=== PATIENT | male | born 1950 | race African-American/Black ===

== ENCOUNTER 2018-12-22 18:55 | Inpatient (IN) | payer MEDICARE, MEDICAID ==
[~2018-12-22] VITALS: Ht 167.6 cm; Wt 49.0 kg
[2018-12-22] MEDS ORDERED: IPRATROPIUM BROMIDE (0.02%) 0.5MG/2.5ML NEB HHN STA (19:03)
[2018-12-22] MEDS ORDERED: METHYLPREDNISOLONE SOD SUCC 125 MG/2 ML VIAL IV STA (19:03)
[2018-12-22] MEDS ORDERED: MAGNESIUM 2 G PREMIX 50 ML IV STA (19:15)
[2018-12-22] MEDS: ALBUTEROL (0.083%) 2.5MG/3ML NEB HHN SCH ×2 (19:30→20:00)
[2018-12-22 19:35] LABS: HEMATOCRIT. 40.3 % (42.0-52.0); HEMOGLOBIN. 12.8 g/dL (14.0-18.0); MEAN CORPUSCULAR HEMOGLOBIN 26.3 pg (28.0-32.0); MEAN CORPUSCULAR VOLUME 82.6 fL (80.0-94.0); MEAN PLATELET VOLUME 8.8 fl (7.4-10.4); PLATELET 240 x1000/uL (130-400); RED BLOOD CELL COUNT 4.88 mill/uL (4.7-6.1); RED CELL DISTRIBUTION WIDTH 16.1 % (11.6-14.6)
[2018-12-22 19:40] LABS: CHLORIDE 102 mEq/L (98-107)
[2018-12-22 20:08] LABS: ATYPICAL LYMPHOCYTES 3; PLATELET ESTIMATE NORMAL
[2018-12-22] MEDS ORDERED: IPRATROPIUM/ALBUTEROL 0.5-3(2.5)MG/3ML NEB INH PRN (21:45)
[2018-12-22] MEDS ORDERED: ZOLPIDEM TARTRATE 5MG TABLET PO PRN (21:45)
[2018-12-22] MEDS ORDERED: NITROGLYCERIN 0.4MG TABLET SL SL PRN (21:45)
[2018-12-22] MEDS ORDERED: NA PHOS,M-B/NA PHOS,DI-BA ENEMA 118ML PR PRN (21:45)
[2018-12-22] MEDS ORDERED: CLONIDINE 0.1MG TABLET PO PRN (21:45)
[2018-12-22] MEDS ORDERED: ACETAMINOPHEN 325MG TABLET PO PRN (21:45)
[2018-12-22] MEDS ORDERED: TRAMADOL 50MG TABLET PO PRN (21:45)
[2018-12-22] MEDS ORDERED: ONDANSETRON HCL 4MG/2ML INJ IV PRN (21:45)
[2018-12-22] MEDS ORDERED: MAGNESIUM/ALUMINUM HYDROXIDE/SIMETHICONE 30ML UDC PO PRN (21:45)
[2018-12-22] MEDS ORDERED: DOCUSATE SODIUM 100MG CAPSULE PO PRN (21:45)
[2018-12-22] MEDS ORDERED: LORAZEPAM 0.5MG TABLET PO PRN (21:45)
[2018-12-22] MEDS ORDERED: LEVOFLOXACIN 500MG PREMIX 100 ML IV SCH (22:00)
[2018-12-22 22:45] LABS: FOLIC ACID (FOLATE) SERUM 11.8 ng/mL (>5.38)
[2018-12-22 22:52] LABS: *AMPHETAMINES SCREEN URINE NEGATIVE (NEGATIVE); *BARBITURATES SCREEN URINE NEGATIVE (NEGATIVE); *BENZODIAZEPINES SCREEN URINE NEGATIVE (NEGATIVE); *COCAINE SCREEN URINE PRESUMTIVE POSITIVE (NEGATIVE); METHADONE URINE SCREEN NEGATIVE (NEGATIVE)
[2018-12-22 22:53] LABS: CANNABINOID URINE SCREEN NEGATIVE (NEGATIVE); OPIATES URINE SCREEN PRESUMTIVE POSITIVE (NEGATIVE); PHENCYCLIDINE URINE SCREEN NEGATIVE (NEGATIVE)
[2018-12-22 23:40] LABS: ETHANOL BLOOD < 10 mg/dL
[2018-12-22 23:41] LABS: TOTAL IRON BINDING CAPACITY 252 ug/dL (250-450)
[2018-12-22] MEDS: GUAIFENESIN/DM 600MG/30MG ER TAB 12HR PO SCH (23:41)
[2018-12-22 23:42] LABS: LDL CHOLESTEROL 114 mg/dL (5-100)
[2018-12-22 23:43] LABS: CREATINE KINASE 54 IU/L (39-308); HDL CHOLESTEROL 72 mg/dL (40-59)
[2018-12-22 23:45] LABS: CREATINE KINASE MB FRACTION 2.8 ng/mL (0.5-3.6)
[2018-12-23] VITALS (10 sets, daily range): BP systolic 104–136; BP diastolic 50–83
[2018-12-23] MEDS: DILTIAZEM HCL 60MG TABLET PO SCH ×5 (02:36→23:05)
[2018-12-23] MEDS: METHYLPREDNISOLONE SOD SUCC 125 MG/2 ML VIAL IV SCH ×3 (06:00→21:06)
[2018-12-23] MEDS ORDERED: PRED1TAB MT (06:17)
[2018-12-23] MEDS ORDERED: ALBU4TAB6 MT (06:17)
[2018-12-23] MEDS: IPRATROPIUM/ALBUTEROL 0.5-3(2.5)MG/3ML NEB HHN SCH ×4 (09:07→21:23)
[2018-12-23 09:38] LABS: CREATINE KINASE 51 IU/L (39-308)
[2018-12-23 09:40] LABS: CREATINE KINASE MB FRACTION 2.5 ng/mL (0.5-3.6)
[2018-12-23] MEDS: ASCORBIC ACID 500 MG TABLET PO SCH ×2 (09:41→21:06)
[2018-12-23] MEDS: GUAIFENESIN/DM 600MG/30MG ER TAB 12HR PO SCH ×2 (09:41→21:06)
[2018-12-23] MEDS: ENOXAPARIN 40MG/0.4ML SYR SUBCUT SCH ×2 (09:41→09:47)
[2018-12-23] MEDS: FAMOTIDINE 20MG TABLET PO SCH ×2 (09:41→21:00)
[2018-12-23] MEDS: ASPIRIN 325MG EC TABLET PO SCH (09:42)
[2018-12-23] MEDS: GUAIFENESIN 200MG/10ML SUGAR FREE UDC PO PRN (18:11)
[2018-12-23] MEDS ORDERED: LEVOFLOXACIN 500MG PREMIX 100 ML IV SCH (21:00)
[2018-12-24] VITALS (12 sets, daily range): BP systolic 106–164; BP diastolic 51–98
[2018-12-24] MEDS: IPRATROPIUM/ALBUTEROL 0.5-3(2.5)MG/3ML NEB HHN SCH ×6 (00:28→20:26)
[2018-12-24] MEDS: DILTIAZEM HCL 60MG TABLET PO SCH ×3 (05:29→17:52)
[2018-12-24] MEDS: METHYLPREDNISOLONE SOD SUCC 125 MG/2 ML VIAL IV SCH ×3 (05:29→21:31)
[2018-12-24] MEDS: GUAIFENESIN/DM 600MG/30MG ER TAB 12HR PO SCH ×2 (09:48→21:00)
[2018-12-24] MEDS: ASCORBIC ACID 500 MG TABLET PO SCH ×2 (09:48→21:05)
[2018-12-24] MEDS: ASPIRIN 325MG EC TABLET PO SCH (09:48)
[2018-12-24] MEDS: FAMOTIDINE 20MG TABLET PO SCH ×2 (09:48→21:00)
[2018-12-24] MEDS ORDERED: IPRATROPIUM/ALBUTEROL 0.5-3(2.5)MG/3ML NEB HHN PRN (10:30)
[2018-12-24] MEDS ORDERED: LEVOFLOXACIN 500MG TABLET PO SCH (21:00)
[2018-12-24] MEDS: GUAIFENESIN 200MG/10ML SUGAR FREE UDC PO PRN (21:04)
[2018-12-25] VITALS (13 sets, daily range): BP systolic 112–140; BP diastolic 55–96
[2018-12-25] MEDS: DILTIAZEM HCL 60MG TABLET PO SCH ×5 (00:29→23:54)
[2018-12-25] MEDS: IPRATROPIUM/ALBUTEROL 0.5-3(2.5)MG/3ML NEB HHN SCH ×6 (04:00→20:36)
[2018-12-25] MEDS: METHYLPREDNISOLONE SOD SUCC 125 MG/2 ML VIAL IV SCH ×4 (06:31→21:25)
[2018-12-25] MEDS: GUAIFENESIN/DM 600MG/30MG ER TAB 12HR PO SCH ×2 (09:00→09:16)
[2018-12-25] MEDS: FAMOTIDINE 20MG TABLET PO SCH ×2 (09:00→21:00)
[2018-12-25] MEDS: ENOXAPARIN 40MG/0.4ML SYR SUBCUT SCH (09:00)
[2018-12-25] MEDS: ASCORBIC ACID 500 MG TABLET PO SCH ×2 (09:16→21:25)
[2018-12-25] MEDS: ASPIRIN 325MG EC TABLET PO SCH (09:16)
[2018-12-25] MEDS: GUAIFENESIN 200MG/10ML SUGAR FREE UDC PO PRN ×2 (09:16→17:19)
[2018-12-25] MEDS: AZITHROMYCIN 500 MG TABLET PO SCH ×2 (10:30→19:51)
[2018-12-25] MEDS: LORATADINE 10MG TABLET PO SCH (10:30)
[2018-12-25] MEDS: GUAIFENESIN 600MG ER TABLET PO SCH ×2 (11:00→21:00)
[2018-12-25] MEDS: MONTELUKAST SODIUM 10MG TABLET PO SCH (17:19)
[2018-12-25] MEDS ORDERED: AZITHROMYCIN 500 MG TABLET PO NR (20:00)
[2018-12-26] VITALS (12 sets, daily range): BP systolic 114–149; BP diastolic 65–96
[2018-12-26] MEDS: IPRATROPIUM/ALBUTEROL 0.5-3(2.5)MG/3ML NEB HHN SCH ×5 (04:43→20:05)
[2018-12-26] MEDS: METHYLPREDNISOLONE SOD SUCC 125 MG/2 ML VIAL IV SCH ×3 (06:21→21:49)
[2018-12-26] MEDS: DILTIAZEM HCL 60MG TABLET PO SCH ×4 (06:22→23:48)
[2018-12-26] MEDS: AZITHROMYCIN 250 MG TABLET PO SCH (08:39)
[2018-12-26] MEDS: FAMOTIDINE 20MG TABLET PO SCH ×2 (08:39→20:41)
[2018-12-26] MEDS: LORATADINE 10MG TABLET PO SCH (08:39)
[2018-12-26] MEDS: GUAIFENESIN 600MG ER TABLET PO SCH ×2 (08:39→20:41)
[2018-12-26] MEDS: ASPIRIN 325MG EC TABLET PO SCH (08:39)
[2018-12-26] MEDS: ASCORBIC ACID 500 MG TABLET PO SCH ×2 (08:39→20:48)
[2018-12-26] MEDS: ENOXAPARIN 40MG/0.4ML SYR SUBCUT SCH ×2 (08:40→08:41)
[2018-12-26] MEDS ORDERED: TERBUTALINE SULFATE 1MG/ML VIAL SUBCUT SCH (12:45)
[2018-12-26] MEDS: THEOPHYLLINE ANHYDROUS 80 MG/15 ML 120ML PO SCH ×2 (15:16→21:50)
[2018-12-26] MEDS: MONTELUKAST SODIUM 10MG TABLET PO SCH (16:14)
[2018-12-27] VITALS (13 sets, daily range): BP systolic 118–140; BP diastolic 58–87
[2018-12-27] MEDS: METHYLPREDNISOLONE SOD SUCC 125 MG/2 ML VIAL IV SCH ×3 (05:24→21:27)
[2018-12-27] MEDS: DILTIAZEM HCL 60MG TABLET PO SCH ×3 (05:25→19:00)
[2018-12-27] MEDS: THEOPHYLLINE ANHYDROUS 80 MG/15 ML 120ML PO SCH ×4 (05:25→21:26)
[2018-12-27] MEDS: IPRATROPIUM/ALBUTEROL 0.5-3(2.5)MG/3ML NEB HHN SCH ×6 (08:00→20:55)
[2018-12-27] MEDS: ENOXAPARIN 40MG/0.4ML SYR SUBCUT SCH (08:45)
[2018-12-27] MEDS: GUAIFENESIN 600MG ER TABLET PO SCH ×2 (08:45→20:17)
[2018-12-27] MEDS: FAMOTIDINE 20MG TABLET PO SCH ×2 (08:52→20:14)
[2018-12-27] MEDS: LORATADINE 10MG TABLET PO SCH (08:52)
[2018-12-27] MEDS: AZITHROMYCIN 250 MG TABLET PO SCH (08:52)
[2018-12-27] MEDS: ASCORBIC ACID 500 MG TABLET PO SCH ×2 (08:52→20:14)
[2018-12-27] MEDS: ASPIRIN 325MG EC TABLET PO SCH (08:52)
[2018-12-27] MEDS: GUAIFENESIN 200MG/10ML SUGAR FREE UDC PO PRN ×3 (10:59→22:26)
[2018-12-27] MEDS: MONTELUKAST SODIUM 10MG TABLET PO SCH (16:16)
[2018-12-28] VITALS (14 sets, daily range): BP systolic 104–153; BP diastolic 61–85
[2018-12-28] MEDS: IPRATROPIUM/ALBUTEROL 0.5-3(2.5)MG/3ML NEB HHN SCH ×5 (04:00→15:48)
[2018-12-28] MEDS: METHYLPREDNISOLONE SOD SUCC 125 MG/2 ML VIAL IV SCH ×2 (05:08→12:56)
[2018-12-28] MEDS: DILTIAZEM HCL 60MG TABLET PO SCH ×4 (05:08→17:11)
[2018-12-28] MEDS: THEOPHYLLINE ANHYDROUS 80 MG/15 ML 120ML PO SCH ×2 (05:09→12:56)
[2018-12-28] MEDS: FAMOTIDINE 20MG TABLET PO SCH (08:29)
[2018-12-28] MEDS: ASCORBIC ACID 500 MG TABLET PO SCH (08:29)
[2018-12-28] MEDS: LORATADINE 10MG TABLET PO SCH (08:29)
[2018-12-28] MEDS: ASPIRIN 325MG EC TABLET PO SCH (08:29)
[2018-12-28] MEDS: AZITHROMYCIN 250 MG TABLET PO SCH (08:29)
[2018-12-28] MEDS: ENOXAPARIN 40MG/0.4ML SYR SUBCUT SCH (08:32)
[2018-12-28] MEDS: GUAIFENESIN 600MG ER TABLET PO SCH (08:32)
[2018-12-28] MEDS: GUAIFENESIN 200MG/10ML SUGAR FREE UDC PO PRN ×2 (09:23→17:14)
[2018-12-28] MEDS: MONTELUKAST SODIUM 10MG TABLET PO SCH (17:11)
== END 2018-12-28 18:50 | DRG 205 ==
LOC: ER 18:55 → 3WST 21:27 → EDBEDREQ 21:33 → EDBEDREQTM 21:33 → SUPCPDRO 21:53 → ENRESERV 12-23 04:37
PROVIDERS: ADMIT Internal Medicine; ATTEND Internal Medicine
PROC: 5A09357 Assistance with Respiratory Ventilation, Less than 24 Consecutive Hours, Continuous Positive Airway Pressure (ICD-10-PCS; principal; 2018-12-22)
DX: J68.0 Bronchitis and pneumonitis due to chemicals, gases, fumes and vapors (principal); J96.00 Acute respiratory failure, unspecified whether with hypoxia or hypercapnia; Z68.1 Body mass index [BMI] 19.9 or less, adult; F14.10 Cocaine abuse, uncomplicated; D63.8 Anemia in other chronic diseases classified elsewhere; I11.0 Hypertensive heart disease with heart failure; I50.9 Heart failure, unspecified; Z53.20 Procedure and treatment not carried out because of patient's decision for unspecified reasons; Z87.891 Personal history of nicotine dependence; Z88.0 Allergy status to penicillin
CPT/HCPCS: 36415; 71045; 80061; 80305; 80320; 82550; 82553; 82607; 82746; 83036; 83540; 83550; 83880; 84484; 87070; 93005; 93306; 93970; 94640; 97162; 97166; 99285; C1893; J1650; J1956; J2930; J3105; J3475; J7050; J7611; J7620; G0480

== ENCOUNTER 2019-01-31 11:11 | Inpatient (IN) | payer MEDICARE, MEDICAID ==
[~2019-01-31] VITALS: Ht 167.6 cm; Wt 47.6 kg
[~2019-01-31 11:11] MED LIST: ALBU4TAB6 MT
[2019-01-31] MEDS ORDERED: IPRATROPIUM BROMIDE (0.02%) 0.5MG/2.5ML NEB HHN STA (11:44)
[2019-01-31] MEDS ORDERED: METHYLPREDNISOLONE SOD SUCC 125 MG/2 ML VIAL IV STA (11:44)
[2019-01-31] MEDS ORDERED: ALBUTEROL (0.083%) 2.5MG/3ML NEB HHN STA (11:44)
[2019-01-31] MEDS ORDERED: MAGNESIUM 2 G PREMIX 50 ML IV ONE (11:45)
[2019-01-31] MEDS ORDERED: SODIUM CHLORIDE 0.9% 1000ML BAG (SEPSIS BOLUS) IV ONE (11:45)
[2019-01-31 12:14] LABS: HEMATOCRIT. 35.9 % (42.0-52.0); HEMOGLOBIN. 11.9 g/dL (14.0-18.0); MEAN CORPUSCULAR HEMOGLOBIN 27.3 pg (28.0-32.0); MEAN CORPUSCULAR VOLUME 82.4 fL (80.0-94.0); MEAN PLATELET VOLUME 7.5 fl (7.4-10.4); PLATELET 142 x1000/uL (130-400); RED BLOOD CELL COUNT 4.36 mill/uL (4.7-6.1); RED CELL DISTRIBUTION WIDTH 14.4 % (11.6-14.6)
[2019-01-31 12:22] LABS: CHLORIDE 94 mEq/L (98-107)
[2019-01-31 12:44] LABS: PLATELET ESTIMATE NORMAL
[2019-01-31] MEDS ORDERED: MORPHINE SULFATE 4 MG/ML CPJ (NOT FOR IM USE) IV PRN (15:30)
[2019-01-31] MEDS ORDERED: DOCUSATE SODIUM 100MG CAPSULE PO PRN (15:30)
[2019-01-31] MEDS ORDERED: MAGNESIUM/ALUMINUM HYDROXIDE/SIMETHICONE 30ML UDC PO PRN (15:30)
[2019-01-31] MEDS ORDERED: ONDANSETRON HCL 4MG/2ML INJ IV PRN (15:30)
[2019-01-31] MEDS ORDERED: CLONIDINE 0.1MG TABLET PO PRN (15:30)
[2019-01-31] MEDS ORDERED: HYDROCODONE/ACETAMINOPHEN 5/325MG TABLET PO PRN (15:30)
[2019-01-31] MEDS ORDERED: GUAIFENESIN 200MG/10ML SUGAR FREE UDC PO PRN (15:30)
[2019-01-31] MEDS ORDERED: IPRATROPIUM/ALBUTEROL 0.5-3(2.5)MG/3ML NEB INH SCH ×2 (15:30→19:30)
[2019-01-31] MEDS ORDERED: LORAZEPAM 2MG/ML CPJ IV PRN (15:30)
[2019-01-31] MEDS ORDERED: LEVOFLOXACIN 500MG PREMIX 100 ML IV NR (16:30)
[2019-01-31 17:06] LABS: BG CARBOXYHEMOGLOBIN 0.3 % (0.5-1.5); BG DEOXYHEMOGLOBIN 2.4 % (0.0-5.0); BG FRACTION INSPIRED OXYGEN 32; BG HCO3 ACT 34.5 mmol/L (22.0-26.0); BG METHEMOGLOBIN 0.3 % (0.0-1.5); BG OXYGEN SATURATION 97.6 % (92.0-98.5); BG PCO2 71.6 mmHg (35.0-45.0); BG PH 7.301 (7.350-7.450); BG PO2 107.7 mmHg (75.0-100.0); BG SAMPLE SITE RIGHT RADIAL; BG TOTAL HEMOGLOBIN 12.3 g/dL (12.0-18.0); BG VENT MODE NASAL CANNULA
[2019-01-31] MEDS ORDERED: METHYLPREDNISOLONE SOD SUCC 125 MG/2 ML VIAL IV SCH (19:00)
[2019-02-01] VITALS (9 sets, daily range): BP systolic 121–148; BP diastolic 54–83
[2019-02-01] MEDS ORDERED: FAMO-135 PO (02:26)
[2019-02-01] MEDS ORDERED: ASPI-986 PO (02:26)
[2019-02-01] MEDS ORDERED: IPRATROPIUM/ALBUTEROL 0.5-3(2.5)MG/3ML NEB INH SCH (04:00)
[2019-02-01] MEDS ORDERED: METHYLPREDNISOLONE SOD SUCC 125 MG/2 ML VIAL IV SCH (06:00)
[2019-02-01 06:35] LABS: BASOPHILS % 0.2 % (0.0-2.0); HEMATOCRIT. 32.1 % (42.0-52.0); HEMOGLOBIN. 10.6 g/dL (14.0-18.0); LYMPHOCYTES % 8.6 % (20.0-50.0); MEAN CORPUSCULAR HEMOGLOBIN 27.2 pg (28.0-32.0); MEAN CORPUSCULAR VOLUME 82.3 fL (80.0-94.0); MEAN PLATELET VOLUME 7.9 fl (7.4-10.4); MONOCYTES % 4.2 % (2.0-8.0); PLATELET 145 x1000/uL (130-400); RED CELL DISTRIBUTION WIDTH 14.2 % (11.6-14.6)
[2019-02-01 06:55] LABS: CHLORIDE 98 mEq/L (98-107)
[2019-02-01] MEDS: GUAIFENESIN 600MG ER TABLET PO SCH ×2 (08:37→21:26)
[2019-02-01] MEDS: AMLODIPINE 10MG TABLET PO SCH (08:37)
[2019-02-01] MEDS: LORATADINE 10MG TABLET PO SCH (08:37)
[2019-02-01] MEDS: FAMOTIDINE 20MG/2ML VIAL IV SCH ×2 (08:38→08:51)
[2019-02-01] MEDS: ENOXAPARIN 40MG/0.4ML SYR SUBCUT SCH (08:39)
[2019-02-01] MEDS ORDERED: SODIUM POLYSTYRENE SULFONATE 15 G/60 ML BOT PO SCH (11:00)
[2019-02-01] MEDS: IPRATROPIUM BROMIDE (0.02%) 0.5MG/2.5ML NEB HHN SCH ×3 (11:38→20:00)
[2019-02-01] MEDS: PREDNISONE 20MG TABLET PO NR ×3 (11:39→12:16)
[2019-02-01 15:20] LABS: CLARITY URINE CLEAR (CLEAR); COLOR URINE YELLOW (YELLOW); KETONES URINE NEGATIVE (NEGATIVE); LEUKOCYTE ESTERASE URINE NEGATIVE (NEGATIVE); NITRITE URINE NEGATIVE (NEGATIVE); OCCULT BLOOD URINE NEGATIVE (NEGATIVE); PH URINE 5.5 (4.5-8.0); PROTEIN URINE NEGATIVE (NEGATIVE); SPECIFIC GRAVITY URINE 1.016 (1.005-1.030); UROBILINOGEN URINE 0.2 E.U./dL (0.2-1.0)
[2019-02-01 15:36] LABS: *AMPHETAMINES SCREEN URINE NEGATIVE (NEGATIVE); *BARBITURATES SCREEN URINE NEGATIVE (NEGATIVE); *BENZODIAZEPINES SCREEN URINE NEGATIVE (NEGATIVE); *COCAINE SCREEN URINE NEGATIVE (NEGATIVE)
[2019-02-01 15:37] LABS: CANNABINOID URINE SCREEN NEGATIVE (NEGATIVE); METHADONE URINE SCREEN NEGATIVE (NEGATIVE); OPIATES URINE SCREEN NEGATIVE (NEGATIVE); PHENCYCLIDINE URINE SCREEN NEGATIVE (NEGATIVE)
[2019-02-01] MEDS: FAMOTIDINE 20MG TABLET PO SCH ×2 (17:00→22:29)
[2019-02-01] MEDS ORDERED: LEVOFLOXACIN 500MG PREMIX 100 ML IV SCH ×2 (17:00→20:00)
[2019-02-01] MEDS: MONTELUKAST SODIUM 10MG TABLET PO SCH ×2 (17:00→22:30)
[2019-02-01] MEDS: LEVOFLOXACIN 500MG TABLET PO SCH (22:28)
[2019-02-02] VITALS (12 sets, daily range): BP systolic 108–157; BP diastolic 61–119
[2019-02-02] MEDS: IPRATROPIUM BROMIDE (0.02%) 0.5MG/2.5ML NEB HHN SCH ×5 (00:20→20:24)
[2019-02-02] MEDS: ENOXAPARIN 40MG/0.4ML SYR SUBCUT SCH (09:00)
[2019-02-02] MEDS: GUAIFENESIN 600MG ER TABLET PO SCH ×2 (09:00→20:55)
[2019-02-02] MEDS: AMLODIPINE 10MG TABLET PO SCH (09:15)
[2019-02-02] MEDS: PREDNISONE 20MG TABLET PO SCH (09:16)
[2019-02-02] MEDS: FAMOTIDINE 20MG TABLET PO SCH ×2 (09:16→17:05)
[2019-02-02] MEDS: LORATADINE 10MG TABLET PO SCH (09:16)
[2019-02-02] MEDS: IPRATROPIUM/ALBUTEROL 0.5-3(2.5)MG/3ML NEB INH PRN ×2 (09:20→13:05)
[2019-02-02 10:44] LABS: BASOPHILS % 0.2 % (0.0-2.0); HEMOGLOBIN. 11.4 g/dL (14.0-18.0); LYMPHOCYTES % 10.7 % (20.0-50.0); MEAN CORPUSCULAR VOLUME 82.9 fL (80.0-94.0); MEAN PLATELET VOLUME 8.2 fl (7.4-10.4); MONOCYTES % 14.3 % (2.0-8.0); NEUTROPHILS % 74.8 % (40.0-76.0); PLATELET 156 x1000/uL (130-400); RED BLOOD CELL COUNT 4.22 mill/uL (4.7-6.1); RED CELL DISTRIBUTION WIDTH 14.4 % (11.6-14.6)
[2019-02-02 10:53] LABS: CHLORIDE 98 mEq/L (98-107)
[2019-02-02] MEDS ORDERED: TERBUTALINE SULFATE 1MG/ML VIAL SUBCUT NR (13:00)
[2019-02-02] MEDS: BUDESONIDE 0.5MG/2ML NEB HHN SCH ×3 (13:00→20:27)
[2019-02-02] MEDS: MONTELUKAST SODIUM 10MG TABLET PO SCH (17:05)
[2019-02-02] MEDS: ACETAMINOPHEN 325MG TABLET PO PRN (17:44)
[2019-02-02] MEDS: LEVOFLOXACIN 500MG TABLET PO SCH (20:54)
[2019-02-03] VITALS (13 sets, daily range): BP systolic 90–197; BP diastolic 53–118
[2019-02-03] MEDS: IPRATROPIUM BROMIDE (0.02%) 0.5MG/2.5ML NEB HHN SCH ×3 (00:30→04:15)
[2019-02-03] MEDS: ENOXAPARIN 40MG/0.4ML SYR SUBCUT SCH (09:00)
[2019-02-03] MEDS: LORATADINE 10MG TABLET PO SCH (09:00)
[2019-02-03] MEDS: GUAIFENESIN 600MG ER TABLET PO SCH ×2 (09:00→21:00)
[2019-02-03] MEDS: AMLODIPINE 10MG TABLET PO SCH (09:00)
[2019-02-03] MEDS ORDERED: LORAZEPAM 1MG TABLET PO PRN (09:30)
[2019-02-03] MEDS: LORAZEPAM 0.5MG TABLET PO PRN ×2 (09:50→14:16)
[2019-02-03] MEDS: FAMOTIDINE 20MG TABLET PO SCH ×2 (09:51→17:25)
[2019-02-03] MEDS: PREDNISONE 20MG TABLET PO SCH (09:51)
[2019-02-03] MEDS ORDERED: ALBUTEROL (0.083%) 2.5MG/3ML NEB HHN PRN (13:45)
[2019-02-03] MEDS: ACETAMINOPHEN 325MG TABLET PO PRN (14:02)
[2019-02-03] MEDS: ALBUTEROL (0.083%) 2.5MG/3ML NEB HHN SCH ×2 (16:50→21:08)
[2019-02-03] MEDS: MONTELUKAST SODIUM 10MG TABLET PO SCH (17:00)
[2019-02-03 19:09] LABS: BG CARBOXYHEMOGLOBIN 0.2 % (0.5-1.5); BG DEOXYHEMOGLOBIN 1.9 % (0.0-5.0); BG FRACTION INSPIRED OXYGEN 36; BG METHEMOGLOBIN 0.3 % (0.0-1.5); BG OXYGEN SATURATION 98.1 % (92.0-98.5); BG OXYHEMOGLOBIN 97.6 % (94.0-97.0); BG PCO2 91.9 mmHg (35.0-45.0); BG PH 7.288 (7.350-7.450); BG PO2 125.6 mmHg (75.0-100.0); BG SAMPLE SITE RIGHT RADIAL; BG TOTAL HEMOGLOBIN 11.6 g/dL (12.0-18.0); BG VENT MODE NASAL CANNULA
[2019-02-03] MEDS: BUDESONIDE 0.5MG/2ML NEB HHN SCH (21:10)
[2019-02-03] MEDS: LEVOFLOXACIN 500MG TABLET PO SCH (21:54)
[2019-02-04] VITALS (13 sets, daily range): BP systolic 92–150; BP diastolic 58–94
[2019-02-04] MEDS: ALBUTEROL (0.083%) 2.5MG/3ML NEB HHN SCH ×6 (00:28→20:07)
[2019-02-04] MEDS: GUAIFENESIN 600MG ER TABLET PO SCH ×2 (09:00→21:00)
[2019-02-04] MEDS: AMLODIPINE 10MG TABLET PO SCH (09:00)
[2019-02-04] MEDS: ENOXAPARIN 40MG/0.4ML SYR SUBCUT SCH (09:00)
[2019-02-04] MEDS: PREDNISONE 20MG TABLET PO SCH (09:31)
[2019-02-04] MEDS: FAMOTIDINE 20MG TABLET PO SCH ×2 (09:32→17:33)
[2019-02-04] MEDS: LORATADINE 10MG TABLET PO SCH (09:42)
[2019-02-04 10:46] LABS: BG BASE EXCESS 15.9 mmol/L (-2.0-2.0); BG CARBOXYHEMOGLOBIN 0.1 % (0.5-1.5); BG FRACTION INSPIRED OXYGEN 35; BG HCO3 ACT 43.7 mmol/L (22.0-26.0); BG METHEMOGLOBIN 0.1 % (0.0-1.5); BG OXYHEMOGLOBIN 91.8 % (94.0-97.0); BG PCO2 70.9 mmHg (35.0-45.0); BG PH 7.408 (7.350-7.450); BG SAMPLE SITE RIGHT BRACHIAL; BG VENT MODE MASK - BIPAP
[2019-02-04] MEDS: BUDESONIDE 0.5MG/2ML NEB HHN SCH (12:46)
[2019-02-04] MEDS ORDERED: LEVOFLOXACIN 500MG PREMIX 100 ML IV SCH (16:15)
[2019-02-04] MEDS: MONTELUKAST SODIUM 10MG TABLET PO SCH (17:33)
[2019-02-05] VITALS (14 sets, daily range): BP systolic 102–135; BP diastolic 31–81
[2019-02-05] MEDS: ALBUTEROL (0.083%) 2.5MG/3ML NEB HHN SCH ×2 (04:57→08:43)
[2019-02-05 08:42] LABS: BG BASE EXCESS 13.4 mmol/L (-2.0-2.0); BG CARBOXYHEMOGLOBIN 0.3 % (0.5-1.5); BG DEOXYHEMOGLOBIN 5.9 % (0.0-5.0); BG FRACTION INSPIRED OXYGEN 28; BG HCO3 ACT 39.7 mmol/L (22.0-26.0); BG METHEMOGLOBIN 0.3 % (0.0-1.5); BG OXYGEN SATURATION 94.1 % (92.0-98.5); BG OXYHEMOGLOBIN 93.5 % (94.0-97.0); BG PCO2 59.3 mmHg (35.0-45.0); BG PH 7.444 (7.350-7.450); BG PO2 67.6 mmHg (75.0-100.0); BG SAMPLE SITE RIGHT RADIAL; BG TOTAL HEMOGLOBIN 11.8 g/dL (12.0-18.0); BG VENT MODE NASAL CANNULA
[2019-02-05] MEDS: BUDESONIDE 0.5MG/2ML NEB HHN SCH (08:43)
[2019-02-05] MEDS: AMLODIPINE 10MG TABLET PO SCH (09:00)
[2019-02-05] MEDS: ENOXAPARIN 40MG/0.4ML SYR SUBCUT SCH (09:00)
[2019-02-05] MEDS: GUAIFENESIN 600MG ER TABLET PO SCH (09:00)
[2019-02-05] MEDS: PREDNISONE 20MG TABLET PO SCH (09:51)
[2019-02-05] MEDS: FAMOTIDINE 20MG TABLET PO SCH (09:51)
[2019-02-05] MEDS: LORATADINE 10MG TABLET PO SCH (09:52)
== END 2019-02-05 18:48 | DRG 193 ==
LOC: ER 11:11 → 5WST 14:48 → SUPCPDRO 15:16 → EDBEDREQ 21:15 → EDBEDREQTM 21:15 → ENRESERV 22:21 → 5EST 02-01 12:33
PROVIDERS: ADMIT Hospitalist; ATTEND Hospitalist
PROC: 5A09357 Assistance with Respiratory Ventilation, Less than 24 Consecutive Hours, Continuous Positive Airway Pressure (ICD-10-PCS; 2019-01-31)
PROC: 02HV33Z Insertion of Infusion Device into Superior Vena Cava, Percutaneous Approach (ICD-10-PCS; principal; 2019-02-04)
PROC: B548ZZA Ultrasonography of Superior Vena Cava, Guidance (ICD-10-PCS; 2019-02-04)
PROC: 5A09357 Assistance with Respiratory Ventilation, Less than 24 Consecutive Hours, Continuous Positive Airway Pressure (ICD-10-PCS; 2019-02-04)
PROC: 5A09357 Assistance with Respiratory Ventilation, Less than 24 Consecutive Hours, Continuous Positive Airway Pressure (ICD-10-PCS; 2019-02-05)
DX: J18.9 Pneumonia, unspecified organism (principal); J96.01 Acute respiratory failure with hypoxia; J96.02 Acute respiratory failure with hypercapnia; J44.1 Chronic obstructive pulmonary disease with (acute) exacerbation; J45.901 Unspecified asthma with (acute) exacerbation; E87.2 Acidosis; J44.0 Chronic obstructive pulmonary disease with (acute) lower respiratory infection; D63.8 Anemia in other chronic diseases classified elsewhere; I10 Essential (primary) hypertension; E87.5 Hyperkalemia; D72.821 Monocytosis (symptomatic); B34.9 Viral infection, unspecified; F19.10 Other psychoactive substance abuse, uncomplicated; Z86.718 Personal history of other venous thrombosis and embolism; Z88.1 Allergy status to other antibiotic agents; Z82.49 Family history of ischemic heart disease and other diseases of the circulatory system; Z87.891 Personal history of nicotine dependence
CPT/HCPCS: 36415; 36569; 36600; 71045; 76937; 80305; 82375; 82805; 83605; 83880; 84484; 87070; 87077; 87804; 93005; 93970; 94640; 94644; 94660; 96365; 96375; 99285; C1725; C1893; J1650; J1956; J2930; J3475; J3490; J7030; J7050; J7512; J7611; J7620; J7626

== ENCOUNTER 2022-04-17 09:40 | Inpatient (IN) | payer MEDICARE ==
[~2022-04-17] VITALS: Ht 170.2 cm; Wt 69.9 kg
[~2022-04-17 09:40] MED LIST changes: +ASPI-986 PO; +FAMO-135 PO
[2022-04-17] MEDS ORDERED: METHYLPREDNISOLONE SOD SUCC 125 MG/2 ML VIAL IV STA (12:51)
[2022-04-17] MEDS ORDERED: ALBUTEROL (0.083%) 2.5MG/3ML NEB HHN STA (12:51)
[2022-04-17] MEDS ORDERED: IPRATROPIUM BROMIDE (0.02%) 0.5MG/2.5ML NEB HHN STA (12:51)
[2022-04-17] MEDS ORDERED: MAGNESIUM 2 G PREMIX 50 ML IV ONE (13:00)
[2022-04-17] MEDS ORDERED: CEFTRIAXONE 1 G PREMIX 50 ML IV ONE (13:00)
[2022-04-17] MEDS ORDERED: AZITHROMYCIN 500MG/250ML 250 ML IV ONE (13:00)
[2022-04-17 14:54] LABS: HEMATOCRIT. 31.2 % (42.0-52.0); HEMOGLOBIN. 10.1 g/dL (14.0-18.0); MEAN CORPUSCULAR HEMOGLOBIN 24.5 pg (28.0-32.0); MEAN CORPUSCULAR VOLUME 75.8 fL (80.0-94.0); MEAN PLATELET VOLUME 7.9 fl (7.4-10.4); PLATELET 326 x1000/uL (130-400); RED BLOOD CELL COUNT 4.12 mill/uL (4.7-6.1); RED CELL DISTRIBUTION WIDTH 14.2 % (11.6-14.6)
[2022-04-17 15:01] LABS: CHLORIDE 97 mEq/L (98-107)
[2022-04-17 16:59] LABS: PLATELET ESTIMATE NORMAL
[2022-04-17] MEDS ORDERED: ACETAMINOPHEN 325MG TABLET PO PRN (19:15)
[2022-04-17] MEDS ORDERED: METHYLPREDNISOLONE SOD SUCC 125 MG/2 ML VIAL IV NR (19:45)
[2022-04-17] MEDS: IPRATROPIUM/ALBUTEROL 0.5-3(2.5)MG/3ML NEB HHN SCH (20:00)
[2022-04-17] MEDS ORDERED: LEVOFLOXACIN 500MG PREMIX 100 ML IV SCH (20:00)
[2022-04-17] MEDS: SODIUM CHLORIDE 0.9% 1,000 ML IV SCH (20:44)
[2022-04-17] MEDS: METHYLPREDNISOLONE SOD SUCC 40 MG/ML VIAL IV SCH (22:30)
[2022-04-17] MEDS: ENOXAPARIN 40MG/0.4ML SYR SUBCUT SCH (22:35)
[2022-04-18] VITALS: BP 103/60
[2022-04-18] MEDS: IPRATROPIUM/ALBUTEROL 0.5-3(2.5)MG/3ML NEB HHN SCH ×6 (00:51→20:13)
[2022-04-18 04:00] VITALS: BP 100/55
[2022-04-18] MEDS: METHYLPREDNISOLONE SOD SUCC 40 MG/ML VIAL IV SCH ×3 (06:15→22:00)
[2022-04-18 08:00] VITALS: BP 93/45
[2022-04-18] MEDS: SODIUM CHLORIDE 0.9% 1,000 ML IV SCH ×2 (08:35→21:55)
[2022-04-18] MEDS: PANTOPRAZOLE SODIUM 40 MG/VIAL IV SCH (10:10)
[2022-04-18 12:00] VITALS: BP 100/55
[2022-04-18 15:14] VITALS: BP 98/60
[2022-04-18] MEDS: PREDNISONE 20MG TABLET PO SCH (18:06)
[2022-04-18 20:00] VITALS: BP 94/53
[2022-04-18] MEDS ORDERED: LEVOFLOXACIN 500MG PREMIX 100 ML IV SCH (20:00)
[2022-04-18] MEDS: ENOXAPARIN 40MG/0.4ML SYR SUBCUT SCH (21:00)
[2022-04-19] VITALS: BP 92/56
[2022-04-19] MEDS: IPRATROPIUM/ALBUTEROL 0.5-3(2.5)MG/3ML NEB HHN SCH ×6 (00:25→20:41)
[2022-04-19 04:00] VITALS: BP 91/56
[2022-04-19 04:42] LABS: *AMPHETAMINES SCREEN URINE NEGATIVE (NEGATIVE); *BARBITURATES SCREEN URINE NEGATIVE (NEGATIVE); *BENZODIAZEPINES SCREEN URINE NEGATIVE (NEGATIVE); *COCAINE SCREEN URINE NEGATIVE (NEGATIVE); CANNABINOID URINE SCREEN PRESUMTIVE POSITIVE (NEGATIVE); METHADONE URINE SCREEN NEGATIVE (NEGATIVE); OPIATES URINE SCREEN NEGATIVE (NEGATIVE); PHENCYCLIDINE URINE SCREEN NEGATIVE (NEGATIVE)
[2022-04-19] MEDS: METHYLPREDNISOLONE SOD SUCC 40 MG/ML VIAL IV SCH (06:00)
[2022-04-19] MEDS ORDERED: LIDOCAINE HCL 1% 10 MG/ML 10ML VIAL ONE (07:06)
[2022-04-19 08:00] VITALS: BP 100/57
[2022-04-19] MEDS: PANTOPRAZOLE SODIUM 40 MG/VIAL IV SCH (09:55)
[2022-04-19] MEDS: PREDNISONE 20MG TABLET PO SCH ×3 (09:55→16:10)
[2022-04-19] MEDS: SODIUM CHLORIDE 0.9% 1,000 ML IV SCH ×2 (09:56→21:34)
[2022-04-19 12:00] VITALS: BP 108/57
[2022-04-19 16:00] VITALS: BP 102/58
[2022-04-19] MEDS: LEVOFLOXACIN 500MG TABLET PO SCH (16:10)
[2022-04-19 18:26] LABS: HEMATOCRIT. 26.9 % (42.0-52.0); HEMOGLOBIN. 8.6 g/dL (14.0-18.0); MEAN CORPUSCULAR HEMOGLOBIN 24.4 pg (28.0-32.0); MEAN PLATELET VOLUME 8.3 fl (7.4-10.4); PLATELET 263 x1000/uL (130-400); RED BLOOD CELL COUNT 3.54 mill/uL (4.7-6.1); RED CELL DISTRIBUTION WIDTH 14.5 % (11.6-14.6)
[2022-04-19 18:56] LABS: CHLORIDE 100 mEq/L (98-107)
[2022-04-19 19:07] LABS: PLATELET ESTIMATE NORMAL
[2022-04-19 20:00] VITALS: BP 92/60
[2022-04-19] MEDS: ENOXAPARIN 40MG/0.4ML SYR SUBCUT SCH (21:00)
[2022-04-20] VITALS: BP 94/54
[2022-04-20] MEDS: IPRATROPIUM/ALBUTEROL 0.5-3(2.5)MG/3ML NEB HHN SCH ×5 (03:15→20:52)
[2022-04-20 04:00] VITALS: BP 106/65
[2022-04-20 08:00] VITALS: BP 109/61
[2022-04-20] MEDS: PREDNISONE 20MG TABLET PO SCH ×3 (08:11→16:53)
[2022-04-20] MEDS: PANTOPRAZOLE SODIUM 40 MG/VIAL IV SCH (08:11)
[2022-04-20 12:00] VITALS: BP 98/55
[2022-04-20] MEDS: SODIUM CHLORIDE 0.9% 1,000 ML IV SCH (13:05)
[2022-04-20 16:00] VITALS: BP 107/65
[2022-04-20] MEDS: LEVOFLOXACIN 500MG TABLET PO SCH (16:53)
[2022-04-20 20:00] VITALS: BP 100/61
[2022-04-20] MEDS: ENOXAPARIN 40MG/0.4ML SYR SUBCUT SCH (21:00)
[2022-04-21] VITALS: BP 101/62
[2022-04-21] MEDS: SODIUM CHLORIDE 0.9% 1,000 ML IV SCH ×2 (00:13→16:35)
[2022-04-21 04:00] VITALS: BP_SYST 101; BP_SYST 104; BP_DIAS 62; BP_DIAS 66
[2022-04-21] MEDS: IPRATROPIUM/ALBUTEROL 0.5-3(2.5)MG/3ML NEB HHN SCH ×5 (04:04→19:15)
[2022-04-21 07:13] LABS: BASOPHILS % 0.5 % (0.0-2.0); HEMATOCRIT. 23.3 % (42.0-52.0); HEMOGLOBIN. 7.6 g/dL (14.0-18.0); LYMPHOCYTES % 10.1 % (20.0-50.0); MEAN CORPUSCULAR HEMOGLOBIN 24.8 pg (28.0-32.0); MEAN CORPUSCULAR VOLUME 76.1 fL (80.0-94.0); MEAN PLATELET VOLUME 7.8 fl (7.4-10.4); NEUTROPHILS % 77.4 % (40.0-76.0); PLATELET 205 x1000/uL (130-400); RED BLOOD CELL COUNT 3.06 mill/uL (4.7-6.1); RED CELL DISTRIBUTION WIDTH 14.7 % (11.6-14.6)
[2022-04-21 07:27] LABS: CHLORIDE 101 mEq/L (98-107)
[2022-04-21 07:32] LABS: TOTAL IRON BINDING CAPACITY 158 ug/dL (250-450)
[2022-04-21 07:58] LABS: FOLIC ACID (FOLATE) SERUM 3.9 ng/mL (>5.38)
[2022-04-21 07:59] VITALS: BP 98/59
[2022-04-21] MEDS ORDERED: BARIUM SULFATE 176 GM SUSP.RECON ONE (09:22)
[2022-04-21] MEDS: PANTOPRAZOLE SODIUM 40 MG/VIAL IV SCH (09:53)
[2022-04-21] MEDS: PREDNISONE 20MG TABLET PO SCH ×3 (09:53→17:19)
[2022-04-21 12:00] VITALS: BP 107/58
[2022-04-21] MEDS ORDERED: MED4 MT (14:04)
[2022-04-21] MEDS ORDERED: IPRA3AMP9 HHN (14:04)
[2022-04-21] MEDS ORDERED: ALBU18HF2 IH (14:04)
[2022-04-21] MEDS ORDERED: BUDE6HFA INH (14:04)
[2022-04-21] MEDS ORDERED: PROT40 MT (14:05)
[2022-04-21 16:00] VITALS: BP 112/60
[2022-04-21] MEDS: LEVOFLOXACIN 500MG TABLET PO SCH (17:19)
[2022-04-21 20:55] VITALS: BP 102/57
== END 2022-04-21 21:25 | disposition home or self-care (01) | DRG 190 ==
LOC: ER 09:56 → 6WST 16:31 → EDBEDREQTM 17:15 → ENRESERV 22:33 → ER 04-18 00:09
PROVIDERS: ADMIT Internal Medicine; ATTEND Internal Medicine
PROC: 02HV33Z Insertion of Infusion Device into Superior Vena Cava, Percutaneous Approach (ICD-10-PCS; principal; 2022-04-19)
PROC: B5181ZA Fluoroscopy of Superior Vena Cava using Low Osmolar Contrast, Guidance (ICD-10-PCS; 2022-04-19)
PROC: B548ZZA Ultrasonography of Superior Vena Cava, Guidance (ICD-10-PCS; 2022-04-19)
DX: J44.1 Chronic obstructive pulmonary disease with (acute) exacerbation (principal); J96.01 Acute respiratory failure with hypoxia; E87.1 Hypo-osmolality and hyponatremia; E44.0 Moderate protein-calorie malnutrition; R64 Cachexia; Z20.822 Contact with and (suspected) exposure to COVID-19; R63.0 Anorexia; I10 Essential (primary) hypertension; K22.0 Achalasia of cardia; D64.9 Anemia, unspecified; Z88.0 Allergy status to penicillin; Z79.899 Other long term (current) drug therapy; Z86.718 Personal history of other venous thrombosis and embolism; Z68.24 Body mass index [BMI] 24.0-24.9, adult; Z99.81 Dependence on supplemental oxygen; Z79.82 Long term (current) use of aspirin; Z87.891 Personal history of nicotine dependence
CPT/HCPCS: 36415; 36573; 71045; 71250; 74176; 74220; 80048; 80053; 80305; 82607; 82728; 82746; 83540; 83550; 83605; 83880; 84439; 84443; 84484; 85025; 85044; 87426; 87804; 93005; 93306; 93970; 94640; 97116; 97162; 97166; 99291; C1725; C9113; C9803; J0456; J0696; J1650; J1956; J2920; J2930; J3475; J3490; J7030; J7512